=== PATIENT | female | born 1975 | race Caucasian/White ===

== ENCOUNTER 2020-03-15 09:10 | Outpatient (CLI) | payer BC | END 2020-03-15 09:11 | disposition home or self-care (01) | LOC: DTY/OP 09:10 | PROVIDERS: ATTEND Surgery | DX: E66.01 Morbid (severe) obesity due to excess calories (principal) | CPT/HCPCS: 97802 ==

== ENCOUNTER 2020-06-11 07:55 | Outpatient (CLI) | payer BC, OTHER ==
--- NOTE | 2020-06-11 13:18 | RAD ---
XR Chest Pa Lat STANDARD HISTORY: Preop COMPARISON: 12/16/2017 FINDINGS: The heart size is normal. The lungs are well expanded without focal areas of consolidation, pneumothorax or pleural effusions. IMPRESSION: No radiographic evidence of acute cardiopulmonary process.
[2020-06-11 16:09] LABS: #Eosinphils 0.1 thou/uL (0.0-0.7); #Lymphocytes 1.9 thou/uL (1.20-3.40); #Monocytes 0.4 thou/uL (0.11-0.59); #Neutrophils 3.6 thou/uL (1.40-6.50); %Basophils 0.6 % (0.0-1.0); %Eosinophils 0.9 % (0.0-10.0); %Lymphocytes 31.7 % (21.0-51.0); %Monocytes 6.6 % (0.0-10.0); %Neutrophils 60.2 % (42.0-75.0); Hemoglobin 14.2 g/dL (12.0-16.0); Mean Corpuscular HGB CONC 32.8 g/dL (32.0-36.0); Mean Corpuscular Hemoglobin 30.2 pg (27.0-31.0); Mean Corpuscular Volume 92.2 fL (78.0-98.0); Mean Platelet Volume 10.4 fL (7.4-10.4); Platelet Count 233 thou/uL (130-400); RBC Distribution Width 11.4 % (11.5-14.5); White Blood Cell (WBC) Count 5.9 thou/uL (4.8-10.8)
[2020-06-11 16:18] LABS: BHCG - Serum Negative (NEGATIVE); Pregs Control Background? CLEAR/WHITE (CLR/WHITE); Pregs Control Bar Appear? YES (CONTROL BAR)
[2020-06-11 16:21] LABS: Hemoglobin A1c 4.9 % (4.0-6.0)
[2020-06-11 16:44] LABS: ALT (SGPT) 19 U/L (8-55); AST (SGOT) 19 U/L (5-34); Albumin 4.4 g/dL (3.5-5.0); Alkaline Phosphatase 58 U/L (40-110); Anion Gap 15 mmol/L (10-20); BUN (Urea Nitrogen) 13 mg/dL (7.0-18.7); Bilirubin, Total 0.3 mg/dL (0.2-1.2); Calc. Creatinine Clearance 0 mL/min (70-130); Calcium 9.9 mg/dL (7.8-10.44); Carbon Dioxide 24 mmol/L (22-29); Chloride 102 mmol/L (98-107); Estimated GFR-MDRD 81; Globulin 2.9 g/dL (2.4-3.5); Glucose 86 mg/dL (70-105); Potassium 3.8 mmol/L (3.5-5.1); Protein, Total 7.3 g/dL (6.0-8.3); Sodium 137 mmol/L (136-145)
[2020-06-12 12:05] LABS: SARS-CoV-2 MS2 Positive; SARS-CoV-2 N Gene Negative; SARS-CoV-2 S Gene Negative; SARS-CoV-2 by NAA Not Detected (NotDetected); SARS-CoV-2 orf1ab Negative
== END 2020-06-11 07:56 | disposition home or self-care (01) ==
LOC: LABBT 07:55 → SCSRAD 07:56
PROVIDERS: ATTEND Surgery
DX: Z01.818 Encounter for other preprocedural examination (principal); E66.01 Morbid (severe) obesity due to excess calories; Z20.828 Contact with and (suspected) exposure to other viral communicable diseases
CPT/HCPCS: 71046; 80053; 83036; 84703; 85025; 87635; U0003

== ENCOUNTER 2020-06-11 13:00 | Inpatient (IN) | payer BC ==
[2020-06-11 14:18] VITALS: BMI 38.9
[2020-06-15] MEDS ORDERED: Heparin 5,000 UNITS/ML VIAL ONE (06:32)
[2020-06-15] MEDS ORDERED: SUGAMMADEX SODIUM 200 MG/2 ML VIAL ONE (06:54)
[2020-06-15] MEDS ORDERED: Fentanyl 250 MCG/5 ML VIAL ONE (06:54)
[2020-06-15] MEDS ORDERED: Bupivacaine/Epinephrine 0.25% 30 ML VIAL ONE (06:58)
[2020-06-15] MEDS ORDERED: Meperidine HCl/PF 25 MG/ML VIAL SLOW IVP PRN (08:28)
[2020-06-15] MEDS ORDERED: Promethazine HCl 25 MG/ML VIAL IM PRN ×3 (08:28→16:06)
[2020-06-15] MEDS ORDERED: Promethazine HCl 25 MG/ML VIAL SLOW IVP PRN (08:28)
[2020-06-15] MEDS ORDERED: Ondansetron HCl/PF 4 MG/2 ML Vial IVP PRN (08:28)
[2020-06-15] MEDS ORDERED: Fentanyl 100 MCG/2 ML VIAL ONE ×2 (08:55→09:23)
[2020-06-15] MEDS ORDERED: Ketorolac Tromethamine 30 MG/ML VIAL ONE (08:57)
[2020-06-15] MEDS ORDERED: Glycopyrrolate 0.2 MG/ML 5 ML SYRINGE ONE (08:57)
[2020-06-15] MEDS ORDERED: PROPOFOL 200 MG/20 ML VIAL ONE (08:57)
[2020-06-15] MEDS ORDERED: Rocuronium Bromide 10 MG/ML (10ML VIAL) ONE (08:57)
[2020-06-15] MEDS ORDERED: Ondansetron PF 4 MG/2 ML Vial ONE (08:57)
[2020-06-15] MEDS ORDERED: Lidocaine 1% PF 5 ML VIAL ONE (08:57)
[2020-06-15] MEDS ORDERED: Zolpidem Tartrate 5 MG TAB PO PRN (09:02)
[2020-06-15] MEDS ORDERED: diphenhydrAMINE 50 MG/ML VIAL IM PRN (09:02)
[2020-06-15] MEDS ORDERED: fentaNYL Citrate/PF 2,000 MCG in Sodium Chloride 0.9% 60 ML IV PRN (09:02)
[2020-06-15] MEDS ORDERED: Ketorolac Tromethamine 30 MG/ML VIAL IVP PRN (09:02)
[2020-06-15] MEDS ORDERED: Ondansetron PF 4 MG/2 ML Vial IVP PRN ×2 (09:02→16:06)
[2020-06-15] MEDS ORDERED: diphenhydrAMINE 25 MG CAP PO PRN (09:02)
[2020-06-15] MEDS ORDERED: diphenhydrAMINE 50 MG/ML VIAL IVP PRN ×2 (09:02→16:06)
[2020-06-15] MEDS ORDERED: Naloxone HCl 0.4 mg/ml Vial IV PRN (09:02)
[2020-06-15] MEDS ORDERED: HYDROmorphone 0.5 MG/0.5 ML SYRINGE ONE (09:14)
[2020-06-15] MEDS ORDERED: Communication Order-Pharmacy FS SCH (09:15)
[2020-06-15] MEDS ORDERED: Promethazine HCl 25 MG/ML VIAL ONE (09:16)
--- NOTE | 2020-06-15 09:37 | OP ---
DATE OF PROCEDURE: 06/15/2020 PREOPERATIVE DIAGNOSIS: Morbid obesity. POSTOPERATIVE DIAGNOSES: Morbid obesity plus paraesophageal hiatal hernia. PROCEDURES PERFORMED: 1. Laparoscopic gastric sleeve with [place] staple line reinforcements and Ethicon reinforcement strips. 2. Paraesophageal hiatal hernia repair without fundoplication or mesh. 3. Esophagogastroduodenoscopy. ANESTHESIA: General. ESTIMATED BLOOD LOSS: Minimal. COMPLICATIONS: None. FINDINGS: Hiatal hernia repair, normal postoperative EGD. DESCRIPTION OF PROCEDURE: The patient was taken to the operating room and laid supine on the operating room table. After general anesthetic was obtained, OG tube was used to decompress the stomach. Arms and legs were double strapped to bariatric table. The abdomen was prepped and draped in a sterile fashion. Left subcostal 5-mm Optiview trocar was placed in usual fashion. High-flow pneumoperitoneum was obtained. Left and right abdominal 12-mm ports as well as right subcostal 5-mm port were all placed under direct visualization. A 5-mm incision was made at the xiphoid, and a Adria was used to raise the liver off the GE junction. The short gastrics were taken down from midbody of stomach to left constance of diaphragm. Left constance, posterior fundus, and angle of His were completely dissected, revealing a paraesophageal hernia. The stomach was dissected back down into the abdominal cavity. Circumferential dissection of the esophagus was performed. Gastrohepatic ligament was opened to facilitate this. Short gastric was taken down to a distance of 6 cm proximal to the pylorus. OG was removed and a 38 bougie was brought in and its tip left in the antrum of the stomach. Multiple loads of [place] stapling device was used to form the sleeve. The first was fired up at a distance of 6 cm to the pylorus, angled up towards the incisura. Care was taken to avoid being too close to the incisura. Multiple loads were then fired up along the bougie, and the stomach was transected at the angle of His. The stomach was removed from the left abdominal incision. This fascial defect was closed using GraNee needle and 0 Vicryl tie. No bleeding on the staple line. No bleeding in the abdomen. The posterior crura were then closed using Ethibond suture in the Ti-KNOT system. Bougie was removed, and EGD scope was passed to the esophagus and stomach to the level of duodenum without obstruction. There was no stricture at the incisura. There was no stenosis at the GE junction or at the diaphragmatic hiatus. EGD scope was used to decompress the stomach and it was pulled and removed. Adria retractor was removed under direct visualization without bleeding. All port sites were infiltrated using local anesthetic and removed without bleeding. Pneumoperitoneum was let down. Vicryl was used to close the fascial defect from the left abdominal incisions. All incisions were irrigated and closed using 4-0 Monocryl and Dermabond. The patient was sent to Recovery in stable condition. All instrument counts, needle counts, and lap counts were correct. Job ID: [id number]
[2020-06-15] MEDS ORDERED: hydrALAZINE 20 MG/ML VIAL SLOW IVP PRN (16:06)
[2020-06-15] MEDS ORDERED: Dextrose 5% in Water 1,000 ML IV PRN (16:06)
[2020-06-15] MEDS ORDERED: Dextrose 50% Abboject 50 ML SYRINGE SLOW IVP PRN (16:06)
[2020-06-15] MEDS ORDERED: Hydrocodone-Acetamin 15 ML UDCUP PO PRN (16:06)
[2020-06-15] MEDS ORDERED: Pantoprazole 40 MG VIAL IVP SCH (17:00)
[2020-06-15] MEDS: D5 1/2 NS w/20 mEq KCL 1,000 ML IV SCH (18:00)
[2020-06-15] MEDS ORDERED: Enoxaparin Sodium 40 MG/0.4 ML SYRINGE SC SCH (21:00)
[2020-06-16] MEDS: D5 1/2 NS w/20 mEq KCL 1,000 ML IV SCH ×2 (02:03→08:53)
[2020-06-16 05:23] LABS: #Lymphocytes 1.1 thou/uL (1.20-3.40); #Monocytes 0.8 thou/uL (0.11-0.59); #Neutrophils 7.3 thou/uL (1.40-6.50); %Basophils 0.4 % (0.0-1.0); %Eosinophils 0.3 % (0.0-10.0); %Lymphocytes 12.2 % (21.0-51.0); %Monocytes 8.2 % (0.0-10.0); Hemoglobin 12.3 g/dL (12.0-16.0); Mean Corpuscular HGB CONC 33.1 g/dL (32.0-36.0); Mean Corpuscular Hemoglobin 30.3 pg (27.0-31.0); Mean Corpuscular Volume 91.7 fL (78.0-98.0); Mean Platelet Volume 9.7 fL (7.4-10.4); Platelet Count 227 thou/uL (130-400); RBC Distribution Width 11.6 % (11.5-14.5); Red Blood Cell (RBC) Count 4.07 mill/uL (4.20-5.40); White Blood Cell (WBC) Count 9.2 thou/uL (4.8-10.8)
[2020-06-16 05:44] LABS: Anion Gap 13 mmol/L (10-20); BUN (Urea Nitrogen) 6 mg/dL (7.0-18.7); Calc. Creatinine Clearance 177 mL/min (70-130); Calcium 8.6 mg/dL (7.8-10.44); Carbon Dioxide 19 mmol/L (22-29); Chloride 106 mmol/L (98-107); Estimated GFR-MDRD Greater than 90; Glucose 108 mg/dL (70-105); Sodium 134 mmol/L (136-145)
[2020-06-16 08:20] VITALS: BP 144/82; TEMP 98.4
[2020-06-16] MEDS ORDERED: Pantoprazole 40 MG VIAL IVP SCH (09:00)
--- NOTE | 2020-06-16 11:44 | DIS ---
DATE OF ADMISSION: 06/15/2020 DATE OF DISCHARGE: 06/16/2020 ADMIT DIAGNOSIS: Morbid obesity. DISCHARGE DIAGNOSIS: Morbid obesity. PROCEDURE PERFORMED: Laparoscopic sleeve by Dr. Escobra without complication. CONDITION ON DISCHARGE: Improved. STAFF: Gustavo Escobar MD HOSPITAL COURSE: On postop day 1, the patient is doing well, started on clear liquids. She is discharged home. Her outpatient prescriptions already sent. She will follow up with me in 2 weeks. Job ID: [id number]
== END 2020-06-16 11:45 | disposition home or self-care (01) | DRG 621 ==
LOC: SURG A 06-15 05:49
PROVIDERS: ADMIT Surgery; ATTEND Surgery
PROC: 0DB64Z3 Excision of Stomach, Percutaneous Endoscopic Approach, Vertical (ICD-10-PCS; principal; 2020-06-15)
PROC: 0BQT4ZZ Repair Diaphragm, Percutaneous Endoscopic Approach (ICD-10-PCS; 2020-06-15)
PROC: 0DJ08ZZ Inspection of Upper Intestinal Tract, Via Natural or Artificial Opening Endoscopic (ICD-10-PCS; 2020-06-15)
DX: E66.01 Morbid (severe) obesity due to excess calories (principal); Z20.828 Contact with and (suspected) exposure to other viral communicable diseases; G43.909 Migraine, unspecified, not intractable, without status migrainosus; J32.9 Chronic sinusitis, unspecified; K44.9 Diaphragmatic hernia without obstruction or gangrene; Z68.39 Body mass index [BMI] 39.0-39.9, adult
CPT/HCPCS: 36415; 80048; 85025; 88307; 88312; C9113; J0690; J1170; J1644; J1650; J1885; J2405; J2550; J2704; J3010; J3480

== ENCOUNTER 2021-07-06 06:51 | Outpatient (CLI) | payer BC | END 2021-07-06 06:52 | disposition home or self-care (01) | LOC: ULT 06:51 | PROVIDERS: ATTEND Surgery | DX: R10.11 Right upper quadrant pain (principal) | CPT/HCPCS: 76705 ==